=== PATIENT | male | born 1965 ===

== ENCOUNTER 2017-07-01 07:29 | Day surgery (SDC) | payer BC ==
[2017-06-30 13:10] VITALS: BMI 36.1
[2017-07-01] MEDS ORDERED: Lactated Ringer's 500 ML IV ONE (09:36)
[2017-07-01] MEDS ORDERED: Propofol 10 mg/ml Inj (20 ML) ONE ×2 (09:39→09:56)
[2017-07-01 10:25] VITALS: TEMP 99.1
[2017-07-01 11:31] VITALS: BP 153/99; PULSE 84; RESP 20; O2SAT 98
== END 2017-07-01 11:20 | disposition home or self-care (01) ==
LOC: C.ENDO 07:29
PROVIDERS: ATTEND Internal Medicine Gastroenterology
DX: Z12.11 Encounter for screening for malignant neoplasm of colon (principal); D12.2 Benign neoplasm of ascending colon; K64.1 Second degree hemorrhoids
CPT/HCPCS: 45380; 88305; J2704; J7120